=== PATIENT | female | born 1940 | race Caucasian/White ===

== ENCOUNTER 2018-11-26 20:33 | Emergency (ER) | payer MEDICARE ==
[~2018-11-26 20:33] MED LIST: AMLO5TAB9 PO; ATOR40TA69 PO; LISI40TA4 PO; OMEG-148 PO
[2018-11-26] MEDS ORDERED: LIDOCAINE 5% TOPICAL PATCH TP ONE (20:59)
[2018-11-26] MEDS ORDERED: HYDROCODONE/ACETAMINOPHEN 10/325 MG TAB ONE (21:06)
[2018-11-26] MEDS ORDERED: KETOROLAC TROMETHAMINE 30MG/ML ONE (21:06)
[2018-11-26 21:27] LABS: APPEARANCE,URINE Clear (CLEAR); BILIRUBIN,URINE Negative (NEGATIVE); COLOR,URINE Yellow (YELLOW); GLUCOSE, URINE (UA) Negative (NEGATIVE); KETONES,URINE Negative (NEGATIVE); LEUKOCYTE ESTERASE ,URINE Moderate (NEGATIVE); NITRATE,URINE Negative (NEGATIVE); OCCULT BLOOD,URINE Negative (NEGATIVE); PH,URINE 5.5 (5.0-8.0); PROTEIN,URINE Negative (NEGATIVE)
[2018-11-26 21:43] LABS: BACTERIA,URINE None Seen /HPF (None Seen); RBC,URINE None Seen /HPF (0-1); SQUAMOUS EPITHELIAL CELL,UR 0-2 /HPF (0-2)
== END 2018-11-26 23:29 | disposition home or self-care (01) ==
LOC: EDH 20:33
DX: M54.5 Low back pain (principal); M62.838 Other muscle spasm; E78.5 Hyperlipidemia, unspecified; I10 Essential (primary) hypertension; Z86.73 Personal history of transient ischemic attack (TIA), and cerebral infarction without residual deficits; Z96.649 Presence of unspecified artificial hip joint
CPT/HCPCS: 72100; 81001; 96372; 99284; J1885